=== PATIENT | female | born 1985 | race Caucasian/White ===

== ENCOUNTER 2021-09-22 17:28 | Emergency (ER) | payer OTHER ==
[~2021-09-22] VITALS: Ht 152.4 cm; Wt 45.4 kg
[2021-09-22] MEDS ORDERED: TESSALON PERLE100 MG PO (20:16)
[2021-09-22] MEDS ORDERED: PROAIR HFA8.5 GM INH (20:16)
[2021-09-22] MEDS ORDERED: PREDNISONE50 MG PO (20:16)
[2021-09-22 20:21] VITALS: BP 141/99
== END 2021-09-22 20:22 | disposition home or self-care (01) ==
LOC: M.ERS 17:28
DX: J06.9 Acute upper respiratory infection, unspecified (principal)